=== PATIENT | female | born 1960 | race Caucasian/White ===

== ENCOUNTER → 2017-05-03 | Outpatient (CLI) | payer BC | LOC: MAMO 07:36 | DX: Z12.31 Encounter for screening mammogram for malignant neoplasm of breast (principal) | CPT/HCPCS: G0202 ==

== ENCOUNTER → 2021-07-18 | Day surgery (SDC) | payer OTHER ==
[~2021-07-18] MED LIST: ALL DAY ALLERGY10 M2 PO; AZELASTINE137 MCG/0.; AZOR 10-40 MG1 EACH PO; BISA-LAX5 MG PO; CHLORTHALIDONE25 MG PO; DAPSONE100 MG PO; ESTRACE2 MG PO; FAMOTIDINE20 MG PO; FLONASE SPRAY; FLUDROCORTISON0.1 MG PO; GABAPENTIN100 MG PO; KENALOG CREAM 015 GM TD; LIORESAL TAB 1010 MG PO; MECLIZINE HCL25 MG PO; NEURONTIN100 MG PO; NORCO 5-325 TA1 EACH PO; NORVASC10 MG PO; SINGULAIR10 MG PO; VENLAFAXINE HCL75 MG PO; VITAMIN C1000 MG PO; VITAMIN D31250 MCG PO; VITAMIN D3250 MC2 PO; ZOFRAN ODT 4 MG4 MG SL
[2021-07-18 07:49] LABS: BUN/CREATININE RATIO 21 (0-10)
== END | disposition home or self-care (01) ==
LOC: OR 06:35
PROVIDERS: Surgery
DX: T82.594A Other mechanical complication of infusion catheter, initial encounter (principal); I10 Essential (primary) hypertension; E78.5 Hyperlipidemia, unspecified; D50.9 Iron deficiency anemia, unspecified; G43.909 Migraine, unspecified, not intractable, without status migrainosus; F41.9 Anxiety disorder, unspecified; G61.81 Chronic inflammatory demyelinating polyneuritis; F32.9 Major depressive disorder, single episode, unspecified; K21.9 Gastro-esophageal reflux disease without esophagitis; E07.9 Disorder of thyroid, unspecified; Z86.010 Personal history of colon polyps; Z87.891 Personal history of nicotine dependence; Z98.84 Bariatric surgery status; Z88.8 Allergy status to other drugs, medicaments and biological substances; Z79.899 Other long term (current) drug therapy
CPT/HCPCS: 36415; 71045; 77001; 80048; 93005; C1769; C1788; J0690; J1642; J2250; J3010; J7040; J7120

== ENCOUNTER → 2021-08-03 | Outpatient (CLI) | payer OTHER ==
[~2021-08-03] VITALS: Ht 162.6 cm; Wt 88.0 kg
== END ==
LOC: OPSV 09:53
DX: G61.0 Guillain-Barre syndrome (principal)
CPT/HCPCS: 96365; 96366; J1561

== ENCOUNTER → 2021-08-04 | Outpatient (CLI) | payer OTHER ==
[~2021-08-04] VITALS: Ht 162.6 cm; Wt 88.0 kg
== END ==
LOC: OPSV 08:40
DX: G61.0 Guillain-Barre syndrome (principal)
CPT/HCPCS: 96365; 96366; J1561

== ENCOUNTER → 2021-08-05 | Outpatient (CLI) | payer OTHER ==
[~2021-08-05] VITALS: Ht 162.6 cm; Wt 88.0 kg
== END ==
LOC: OPSV 08:50
DX: G61.0 Guillain-Barre syndrome (principal)
CPT/HCPCS: 96365; 96366; J1561

== ENCOUNTER → 2021-11-01 | Outpatient (CLI) | payer OTHER | LOC: MRI 12:27 | DX: R22.1 Localized swelling, mass and lump, neck (principal); M48.50XA Collapsed vertebra, not elsewhere classified, site unspecified, initial encounter for fracture; S22.009A Unspecified fracture of unspecified thoracic vertebra, initial encounter for closed fracture; S32.000A Wedge compression fracture of unspecified lumbar vertebra, initial encounter for closed fracture; M50.31 Other cervical disc degeneration, high cervical region; M48.02 Spinal stenosis, cervical region; M54.16 Radiculopathy, lumbar region; S32.10XA Unspecified fracture of sacrum, initial encounter for closed fracture; W19.XXXA Unspecified fall, initial encounter | CPT/HCPCS: 36415; 72146; 72148; 72156; 82565; A9577 ==

== ENCOUNTER → 2022-02-01 | Outpatient (CLI) | payer OTHER | LOC: MAMO 01-19 15:30 | DX: Z12.31 Encounter for screening mammogram for malignant neoplasm of breast (principal) | CPT/HCPCS: 77063; 77067 ==